=== PATIENT | male | born 1975 | race Caucasian/White ===

== ENCOUNTER → 2018-03-29 | Day surgery (SDC) | payer BC ==
[~2018-03-29] VITALS: Ht 195.6 cm; Wt 122.5 kg
[2018-03-29] VITALS (9 sets, daily range): BP systolic 16–145; BP diastolic 56–123
[~2018-03-29] MED LIST: ALPRAZOLAM 0.5 MG TAB ONE; ASPIRIN81 MG PO; DIPHENHYDRAMINE HCL 25 MG CAP ONE; FENTANYL CITRATE/PF 100MCG/2 ML INJ ONE; HEPARIN SOD (PORCINE) 1000 UNIT/ML 30ML ONE; HEPARIN SOD/SOD CHLORIDE 2,000 ML ONE; IOPAMIDOL 370 MG/ML 200 ML INFUS..BTL INJ ONE; LIDOCAINE HCL 2% LOCAL 20 ML VIAL ONE; MIDAZOLAM HCL 2 MG/2 ML VIAL ONE; NITROGLYCERIN/D5W 200 MCG/ML 250 ML ONE; SODIUM CHLORIDE 0.9% 1000ML 0 ML ONE; SODIUM CHLORIDE 0.9% 1000ML 1,000 ML ONE; VERAPAMIL HCL 2.5 MG/ML 2 ML VIAL ONE
--- NOTE | 2018-03-29 14:32 | Operative Report ---
DATE OF PROCEDURE: March 29, 2018 INDICATIONS: Coronary artery disease and abnormal stress test with apical ischemia. PROCEDURES PERFORMED 1. Left heart catheterization. 2. Selective coronary angiography. 3. Left ventriculography. 4. Deployment right wrist transradial band. COMPLICATIONS: None. BLOOD LOSS: Minimal. RECOMMENDATIONS: CT angiogram of the coronaries to evaluate for anomalous left coronary cusp. Access was obtained in the right radial artery. A 5-Stateless sheath was placed. Diagnostic coronary angiogram revealed no angiographic coronary artery disease. Excellent flow was noted in all vessels. Right coronary artery was a dominant vessel. The left main, however, appeared to have an anomalous course potentially arising from the noncoronary cusp. This was not well delineated. LV ejection fraction was 65%. LV end-diastolic pressure of 10. No gradient across the aortic valve on pullback. Right wrist TR band applied. Patient discharged home the same day. Job#: [id number] GILBERTO
== END | disposition home or self-care (01) ==
LOC: CATH LAB 07:56
PROVIDERS: ATTEND Internal Medicine Interventional Cardiology
DX: I25.118 Atherosclerotic heart disease of native coronary artery with other forms of angina pectoris (principal); R94.39 Abnormal result of other cardiovascular function study; I87.2 Venous insufficiency (chronic) (peripheral); R03.0 Elevated blood-pressure reading, without diagnosis of hypertension; E78.01 Familial hypercholesterolemia; Z79.82 Long term (current) use of aspirin; Z68.32 Body mass index [BMI] 32.0-32.9, adult; Z86.718 Personal history of other venous thrombosis and embolism; Z82.49 Family history of ischemic heart disease and other diseases of the circulatory system
CPT/HCPCS: 93458; C1769; C1887; J1644; J2001; J2250; J7030; Q9967

== ENCOUNTER → 2018-04-12 | Outpatient (CLI) | payer BC ==
[~2018-04-12] MED LIST changes: -ALPRAZOLAM 0.5 MG TAB ONE; -DIPHENHYDRAMINE HCL 25 MG CAP ONE; -FENTANYL CITRATE/PF 100MCG/2 ML INJ ONE; -HEPARIN SOD (PORCINE) 1000 UNIT/ML 30ML ONE; -HEPARIN SOD/SOD CHLORIDE 2,000 ML ONE; -LIDOCAINE HCL 2% LOCAL 20 ML VIAL ONE; +METOPROLOL TARTRATE 25 MG TAB ONE; -MIDAZOLAM HCL 2 MG/2 ML VIAL ONE; +NITROGLYCERIN 0.4 MG SUBL ONE; -NITROGLYCERIN/D5W 200 MCG/ML 250 ML ONE; +SODIUM CHLORIDE 0.9% 100 ML 200 ML ONE; -SODIUM CHLORIDE 0.9% 1000ML 0 ML ONE; -SODIUM CHLORIDE 0.9% 1000ML 1,000 ML ONE; +SODIUM CHLORIDE 0.9% 250ML 250 ML ONE; -VERAPAMIL HCL 2.5 MG/ML 2 ML VIAL ONE
--- NOTE | 2018-04-12 16:50 | Diagnostic Imaging Report ---
EXAM: CORONARY CTA WITHOUT CALCIUM SCORE INDICATION: \[id number] \S\[id number] \S\ANOMALOUS LEFT MAIN ARTERY COMPARISON: None. TECHNIQUE: Multi-detector CT technology was employed (64 MDCT [employer]). Minimal slice thickness was performed following the intravenous administration of contrast material. Study has to be repeated after 20 minutes due to suddenly increasing heart rate during contrast administration. Then, the patient was premedicated with 50 mg by mouth metoprolol. A 0.4 mg sublingual nitroglycerin for coronary dilation was given during first contrast administration. IV CONTRAST: 180 mL of Omnipaque 350, total dose after the 2 IV injections ORAL CONTRAST: None COMPLICATIONS: None RADIATION DOSE: Total DLP: 3011 mGy*cm Estimated effective dose: (DLP x 0.015 x size factor) mSv CTDIvol has been reviewed. It is below the limits set by the Radiation Protocol Committee (RPC). For optimization of anatomic evaluation, multiplanar reconstruction, maximum intensity projections, and advanced 3-D off-line postprocessing were performed on a dedicated stand-alone workstation under the direct supervision of the interpreting physician. QUALITY: Good quality on the second set acquisition. First set of images were nondiagnostic. 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 - Congenital absence of the LCX. - The right coronary artery arises from the right sinus of Valsalva. Separate ostium of the conus branch. Left Main Coronary Artery: The left main is normal sized vessel that bifurcates into the LAD and circumflex. There is no evidence of atherosclerotic changes or stenotic disease. Left Anterior Descending Coronary Artery: The LAD is a normal size vessel that wraps around the apex. It gives rise to 2 acute diagonal branches. It also supplies the obtuse marginal and sinus node arteries.There is no evidence of atherosclerotic changes or stenotic disease. Left Circumflex Coronary Artery: Congenitally absent. Right Coronary Artery: The RCA is a normal size vessel, which is dominant. It gives rise to an AV chikis branch, and 2 acute marginal branches. In its distal segment it bifurcates into the PDA and PV branch. There is separate origin of the conus branch. There is no evidence of atherosclerotic changes or stenotic disease. CARDIAC MORPHOLOGY AND FUNCTION: The left ventricle and left atrium are dilated. The right ventricle appears also prominent. LVEF: 61%, LV end diastolic volume: 232.4 cc LV end systolic volume: 89.2 cc LV stroke volume: 143.2 cc LIMITED CHEST: Limited views of the visualized chest show no abnormality within chest wall and mediastinum. No mediastinal lymphadenopathy. The visualized lungs are clear. The visualized portions of the ascending and descending thoracic aorta are of normal size. LIMITED ABDOMEN: Limited images of the upper abdomen reveal no abnormalities of the visualized organs. BONES: No acute osseous abnormalities. IMPRESSION: 1. Anomalous variant coronary anatomy including: - Posterior and superior origin of the left main coronary artery from the left sinus of Valsalva at the level of the sinotubular junction. 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 Obtuse marginal and sinus node artery supplied by the proximal LAD. - Normal origin of the right coronary artery with separate ostium of the conus artery. 2. No coronary atherosclerotic changes or stenotic disease. CAD-MIGEL 0 Reference: [email or web address] Signed by: Dr. Kristie Price M.D. on 04/12/2018 4:47 PM
== END ==
LOC: CT 11:26
PROVIDERS: ATTEND Internal Medicine Interventional Cardiology
DX: D68.51 Activated protein C resistance (principal); R07.9 Chest pain, unspecified; R00.2 Palpitations; R09.89 Other specified symptoms and signs involving the circulatory and respiratory systems; I87.2 Venous insufficiency (chronic) (peripheral)
CPT/HCPCS: 75574; J7050; Q9967

== ENCOUNTER 2021-09-05 19:44 | Emergency (ER) | payer BC ==
[~2021-09-05] VITALS: Ht 195.6 cm; Wt 117.9 kg
[~2021-09-05 19:44] MED LIST changes: -IOPAMIDOL 370 MG/ML 200 ML INFUS..BTL INJ ONE; -METOPROLOL TARTRATE 25 MG TAB ONE; -NITROGLYCERIN 0.4 MG SUBL ONE; -SODIUM CHLORIDE 0.9% 100 ML 200 ML ONE; -SODIUM CHLORIDE 0.9% 250ML 250 ML ONE
[2021-09-05 20:05] LABS: BASOPHILS # (AUTO) 0.1 (0.0-0.1); BASOPHILS % 0.6 % (0.0-1.0); EOSINOPHILS # (AUTO) 0.1 (0.0-0.4); EOSINOPHILS % 0.9 % (0.0-6.0); HEMATOCRIT 43.6 % (38.2-49.6); HEMOGLOBIN 14.5 g/dL (14.0-18.0); LYMPHOCYTES # (AUTO) 3.2 (1.0-3.2); MEAN CORPUSCULAR HEMOGLOBIN 29.8 pg (28-32); MEAN CORPUSCULAR HGB CONC 33.3 g/dL (31-35); MEAN CORPUSCULAR VOLUME 89.5 fL (81-99); MONOCYTES # (AUTO) 0.9 (0.2-0.8); MONOCYTES % 11.3 % (4.4-11.3); NEUTROPHILS # (AUTO) 3.8 (2.1-6.9); NEUTROPHILS % 47.1 % (38.7-80.0); PLATELET COUNT 316 x10e3/uL (140-360); RED BLOOD COUNT 4.87 x10e6/uL (4.3-5.7); RED CELL DISTRIBUTION WIDTH 12.7 % (11.7-14.4)
[2021-09-05 20:13] LABS: INR 0.86; PROTHROMBIN TIME 12.4 seconds (11.9-14.5)
[2021-09-05 20:14] LABS: PARTIAL THROMBOPLASTIN TIME 26.1 seconds (23.8-35.5)
[2021-09-05 20:23] LABS: ALANINE AMINOTRANSFERASE 19 IU/L (0-55); ALBUMIN 4.2 g/dL (3.5-5.0); ALBUMIN/GLOBULIN RATIO 1.2 (0.8-2.0); ALKALINE PHOSPHATASE 70 IU/L (40-150); ANION GAP 14.8 mmol/L (8-16); BLOOD UREA NITROGEN 17 mg/dL (7-26); BUN/CREATININE RATIO 13 (6-25); CALCIUM 9.6 mg/dL (8.4-10.2); CARBON DIOXIDE 24 mmol/L (22-29); CHLORIDE 105 mmol/L (98-107); CREATINE KINASE 299 IU/L (30-200); CREATININE, SERUM 1.28 mg/dL (0.72-1.25); EST GLOMERULAR FILTRATION RATE 61 ML/MIN (60-); GLUCOSE 113 mg/dL (74-118); POTASSIUM 3.8 mmol/L (3.5-5.1); SODIUM 140 mmol/L (136-145)
[2021-09-05 23:06] VITALS: BP 106/78
== END 2021-09-05 23:26 | disposition home or self-care (01) ==
LOC: ER 19:54
DX: I48.91 Unspecified atrial fibrillation (principal); R94.31 Abnormal electrocardiogram [ECG] [EKG]; I10 Essential (primary) hypertension
CPT/HCPCS: 36415; 71045; 80053; 82550; 82553; 84484; 85025; 85610; 85730; 93005; 99284

== ENCOUNTER 2025-03-11 05:05 | Emergency (ER) | payer BC ==
[~2025-03-11] VITALS: Ht 195.6 cm; Wt 113.4 kg
[2025-03-11 05:08] VITALS: TEMP 98.4
[2025-03-11] MEDS ORDERED: APIXABAN 5 MG TABLET PO SCH (05:30)
[2025-03-11] MEDS ORDERED: SODIUM CHLORIDE FLUSH 10 ML SYR IV PRN (05:30)
[2025-03-11 05:43] LABS: BASOPHILS % 0.3 % (0.0-1.0); EOSINOPHILS % 0.7 % (0.0-6.0); LYMPHOCYTES % 29.2 % (18.0-39.1); MONOCYTES % 9.0 % (4.4-11.3); NEUTROPHILS % 60.0 % (38.7-80.0); RED CELL DISTRIBUTION WIDTH 12.9 % (11.7-14.4)
[2025-03-11 06:00] LABS: EST GLOMERULAR FILTRATION RATE 93.0 ML/MIN (>=60)
[2025-03-11] MEDS: APIXABAN 5 MG TABLET PO SCH (06:05)
[2025-03-11 07:24] VITALS: PULSE 86; RESP 24; O2SAT 99
[2025-03-11] MEDS ORDERED: ELIQUIS5 MG PO (07:48)
[2025-03-11] MEDS ORDERED: METOPROLOL TART25 MG PO (07:48)
[2025-03-11 09:03] VITALS: BP 134/77; PULSE 89
[2025-03-11] MEDS: METOPROLOL TARTRATE 25 MG TAB PO ONE (09:03)
== END 2025-03-11 09:05 | disposition home or self-care (01) ==
LOC: ER 05:25
DX: R06.02 Shortness of breath (principal); I48.91 Unspecified atrial fibrillation; R00.2 Palpitations; I10 Essential (primary) hypertension; E78.5 Hyperlipidemia, unspecified; R94.31 Abnormal electrocardiogram [ECG] [EKG]
CPT/HCPCS: 36415; 71046; 80053; 83880; 84484; 85025; 93005; 94760; 99284